=== PATIENT | male | born 1985 | race Caucasian/White ===

== ENCOUNTER 2017-11-12 12:37 | Emergency (ER) | payer BC ==
[2017-11-12 12:45] VITALS: BP 148/95; PULSE 90; TEMP 97.9; BMI 36.6
[2017-11-12] MEDS ORDERED: SODIUM CHLORIDE 1,000 ML IV STA (13:12)
[2017-11-12] MEDS ORDERED: KETOROLAC TROMETHAMINE 30 MG/1 ML VIAL IVPUSH ONE (13:12)
[2017-11-12] MEDS ORDERED: PANTOPRAZOLE SODIUM 40 MG in SODIUM CHLORIDE 100 ML IVPB ONE (13:12)
[2017-11-12] MEDS ORDERED: KETOROLAC TROMETHAMINE 30 MG/1 ML VIAL ONE (13:17)
[2017-11-12] MEDS ORDERED: PANTOPRAZOLE SODIUM 40 MG/100 ML BAG IVPB ONE (13:17)
--- NOTE | 2017-11-12 13:17 | PDOC ---
History of Present Illness - General Chief Complaint: Pain Stated Complaint: ABD PAIN, TIGHTNESS Time Seen by Provider: 11/12/17 13:00 History Source: Patient Exam Limitations: No Limitations - History of Present Illness Travel History: No Initial Comments: 11/12/17 13:06 31-year-old male presenting with complaints of epigastric tightness approximately one hour. Patient states has had this intermittently for the past 6 months and his primary care physician had ordered an abdominal ultrasound a few weeks ago but has not received results. Patient denies fever, chills, difficulty breathing, nausea, change in bowel pattern, radiation of pain. Patient states pain comes and goes with meals and denies history of gallstones. Patient states does not smoke cigarettes and drinks occasionally. Patient has no other complaints at this time. Timing/Duration: reports: constant Quality: reports: moderate, fullness Abdominal Pain Onset Location: reports: epigastric Pain Radiation: reports: no radiation Activities at Onset: reports: eating Aggravating Factors: improves with: None Alleviating Factors: improves with: Change in Position Past History - Travel Traveled outside of the country in the last 30 days: No - Past Medical History Allergies/Adverse Reactions: Allergies Allergy/AdvReac Type Severity Reaction Status Date / Time No Known Allergies Allergy Verified 11/12/17 12:45 Home Medications: Ambulatory Orders NK [No Known Home Medication] 11/12/17 COPD: No - Suicide/Smoking/Psychosocial Hx Smoking History: Never smoked Patient Lives Alone: No Lives with/in: spouse/SO Review of Systems - Review of Systems Able to Perform ROS?: No Constitutional: No: Symptoms Reported HEENTM: No: Symptoms Reported Respiratory: No: Symptoms reported Cardiac (ROS): No: Symptoms Reported ABD/GI: Yes: Abdominal cramping. No: Nausea, Vomiting : No: Symptoms Reported Musculoskeletal: No: Symptoms Reported Integumentary: No: Symptoms Reported Neurological: No: Symptoms reported *Physical Exam - Vital Signs Last Vital Signs Temp Pulse Resp BP Pulse Ox 97.9 F 90 18 148/95 99 11/12/17 12:43 11/12/17 12:43 11/12/17 12:43 11/12/17 12:43 11/12/17 12:43 - Physical Exam General Appearance: Yes: Nourished, Appropriately Dressed. No: Apparent Distress HEENT: positive: EOMI, ZACH, TMs Normal, Pharynx Normal. negative: Pale Conjunctivae Neck: positive: Normal Thyroid Respiratory/Chest: positive: Lungs Clear, Normal Breath Sounds. negative: Respiratory Distress, Accessory Muscle Use Cardiovascular: positive: Regular Rhythm, Regular Rate. negative: Murmur Gastrointestinal/Abdominal: positive: Normal Bowel Sounds, Soft, Tenderness ( epigastric). negative: Distended, Guarding, Rebound Extremity: positive: Normal Capillary Refill. negative: Pedal Edema Integumentary: positive: Normal Color, Warm, Moist Neurologic: positive: Motor Strength 5/5 (ambulatory) ED Treatment Course - LABORATORY CBC & Chemistry Diagram: 11/12/17 13:30 11/12/17 13:30 - RADIOLOGY Radiology Studies Ordered: Category Date Time Status GALLBLADDER US [US] Stat Ultrasound 11/12/17 13:12 Ordered Medical Decision Making - Medical Decision Making 11/12/17 13:21 Patient epigastric pain for the past which began after eating a sandwich. He signs in with epigastric tenderness no right upper quadrant tenderness. Patient ordered for labs, fluids, Toradol Protonix and IV fluids and gallbladder ultrasound. 11/12/17 15:30 Ultrasound shows gallbladder normal in size and is contained multiple calculi. There is no evidence of intra-or extrahepatic duct dilatation. There is no sonographic evidence of acute cholecystitis. The liver is normal in size and hyperechoic in texture consistent with diffuse fatty infiltration 11/12/17 15:31 Laboratory Tests 11/12/17 11/12/17 11/12/17 13:30 13:30 13:30 WBC 8.8 Hgb 13.9 Hct 42.2 Plt Count 216 Neutrophils % 64.5 Sodium 141 Potassium 4.0 Chloride 103 Carbon Dioxide 30 BUN 13 Creatinine 1.0 Random Glucose 122 H Calcium 9.3 Magnesium 2.3 Total Bilirubin 0.5 AST 55 H ALT 62 Alkaline Phosphatase 102 Total Protein 7.4 Albumin 4.1 Lipase 143 Urine Ketones Urine Nitrite Ur Leukocyte Esterase 11/12/17 13:38 WBC Hgb Hct Plt Count Neutrophils % Sodium Potassium Chloride Carbon Dioxide BUN Creatinine Random Glucose Calcium Magnesium Total Bilirubin AST ALT Alkaline Phosphatase Total Protein Albumin Lipase Urine Ketones Negative Urine Nitrite Negative Ur Leukocyte Esterase Negative *DC/Admit/Observation/Transfer Diagnosis at time of Disposition: Epigastric abdominal pain - Discharge Dispostion Disposition: HOME Condition at time of disposition: Improved - Referrals Referrals: Samir Mares DO [Staff Physician] - - Patient Instructions Printed Discharge Instructions: DI for Epigastric Pain Additional Instructions: Avoid spicy greasy food and drink plenty of fluids. 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 - Post Discharge Activity
[2017-11-12 13:45] LABS: BASO % 0.4 % (0-2.0); EOS % 1.4 % (0-4.5); HEMATOCRIT 42.2 % (35.4-49); HEMOGLOBIN 13.9 GM/dL (11.7-16.9); LYMPH % 26.4 % (8-40); MCH 27.4 pg (25.7-33.7); MCHC 33.1 g/dl (32.0-35.9); MEAN CELL VOLUME 82.8 fl (80-96); MEAN PLT VOLUME 8.1 fl (7.5-11.1); MONO % 7.3 % (3.8-10.2); NEUT % 64.5 % (42.8-82.8); PLATELET COUNT 216 K/MM3 (134-434); RBC 5.09 M/mm3 (4.00-5.60); RDW 12.8 % (11.9-15.9); WHITE BLOOD COUNT 8.8 K/mm3 (4.0-10.0)
[2017-11-12] MEDS ORDERED: morphine CARPU-JECT 2 MG/1 ML DISP.SYRIN IVPUSH ONE (13:55)
[2017-11-12] MEDS ORDERED: morphine SULFATE 4 MG/ML VIAL ONE (14:01)
[2017-11-12 14:08] LABS: ALBUMIN 4.1 g/dl (3.4-5.0); ANION GAP 8 (8-16); BLOOD UREA NITROGEN 13 mg/dL (7-18); CALCIUM 9.3 mg/dL (8.5-10.1); CHLORIDE 103 mmol/L (98-107); CO2 30 mmol/L (21-32); GLUCOSE,RANDOM 122 mg/dL (74-106); MAGNESIUM 2.3 mg/dL (1.8-2.4); SGPT/ALT 62 U/L (12-78); SODIUM 141 mmol/L (136-145)
[2017-11-12 14:18] LABS: ALK PHOS 102 U/L (45-117); BILIRUBIN,TOTAL 0.5 mg/dL (0.2-1.0); SGOT/AST 55 U/L (15-37); TOT PROT 7.4 g/dl (6.4-8.2)
[2017-11-12 14:33] LABS: URINE APPEARANCE CLEAR; URINE BILIRUBIN NEGATIVE (<2.0 mg/dL); URINE COLOR YELLOW; URINE GLUCOSE (UA) NEGATIVE (NEGATIVE); URINE KETONE NEGATIVE (NEGATIVE); URINE LEUK ESTERASE NEGATIVE (NEGATIVE); URINE NITRITE NEGATIVE (NEGATIVE); URINE PROTEIN NEGATIVE (NEGATIVE)
--- NOTE | 2017-11-13 14:17 | EKG ---
Test Reason : Blood Pressure : / mmHG Vent. Rate : 078 BPM Atrial Rate : 078 BPM P-R Int : 154 ms QRS Dur : 084 ms QT Int : 362 ms P-R-T Axes : 033 024 024 degrees QTc Int : 412 ms NORMAL SINUS RHYTHM NORMAL ECG NO PREVIOUS ECGS AVAILABLE Confirmed by Haider Latham ([id number]) on 11/13/2017 2:17:31 PM Referred By: Confirmed By:Haider Latham
== END 2017-11-12 15:55 | disposition home or self-care (01) ==
LOC: JER 12:37
PROC: 3E033GC Introduction of Other Therapeutic Substance into Peripheral Vein, Percutaneous Approach (ICD-10-PCS; principal; 2017-11-12)
PROC: 3E033NZ Introduction of Analgesics, Hypnotics, Sedatives into Peripheral Vein, Percutaneous Approach (ICD-10-PCS; 2017-11-12)
PROC: 3E0333Z Introduction of Anti-inflammatory into Peripheral Vein, Percutaneous Approach (ICD-10-PCS; 2017-11-12)
DX: R10.13 Epigastric pain (principal); R10.816 Epigastric abdominal tenderness
CPT/HCPCS: 36415; 76705-TC; 80053; 81003; 83690; 83735; 85025; 93005; 93010; 99284-25; J7030